=== PATIENT | female | born 1955 | race Caucasian/White ===

== ENCOUNTER 2020-09-23 23:27 | Emergency (ER) | payer MEDICARE ==
[~2020-09-23] VITALS: Ht 167.6 cm; Wt 65.8 kg
--- NOTE | 2020-09-23 23:51 | NUR ---
BIBRA FOR C/O R HIP PAIN X 2 DAYS.DENIED ANY FALL OR TRAUMA. REPORTED HAD L AXILARY LYMPH NODE REMOVAL AT [facility] ON 09/15 AND THE DRAINAGE TUBE WAS REMOVED EARLIER TODAY. ALSO NOTED W/ L ARM FISTULA. PT ENDORSED KIDNEY FAILURE BUT NOT STARTED ON HD YET. PT WAS PLACED IN BED 8 ER. VSS . WILL CONT TO MONITOR WHILE AWAITING FOR MD'S EVAL
--- NOTE | 2020-09-24 01:51 | NUR ---
PT IS MEDICALLY STABLE FOR D/C. Patient discharged to home in stable condition. Written and verbal after care instructions given. Patient verbalizes understanding of instruction. pt was assisted to the car via wc
[2020-09-24 01:52] VITALS: BP 148/84
== END 2020-09-24 01:52 | disposition home or self-care (01) ==
LOC: ER 23:33
DX: M54.31 Sciatica, right side (principal); M79.604 Pain in right leg; M25.551 Pain in right hip; I10 Essential (primary) hypertension; Z98.890 Other specified postprocedural states
CPT/HCPCS: 72131-TC; 93971-TC

== ENCOUNTER 2021-09-04 22:31 | Emergency (ER) | payer MEDICARE, BC ==
[~2021-09-04] VITALS: Ht 167.6 cm; Wt 63.5 kg
--- NOTE | 2021-09-04 23:05 | NUR ---
[id number]. DIZZINESS, NAUSEA ND VOMMITING X 2 HRS. PATIENT HAS LEFT AV FISTULA +BRUIT AND THRILLS. WITH S/P RIGHT BREAST MASTECTOMY. PATIENT IS ALERT, ORIENTED X4. VITALS CHECKED.
--- NOTE | 2021-09-04 23:06 | NUR ---
CORRAL DAUGHTER . INFORMED THAT PT HALL MANAGER IS AT [facility] DR GABI SIMONS.
[2021-09-04] MEDS ORDERED: ONDANSETRON HCL/PF 4 MG/2 ML VIAL ONE (23:25)
[2021-09-04] MEDS ORDERED: ONDANSETRON HCL/PF - ER 4 MG/2 ML VIAL IV ONE (23:30)
[2021-09-04] MEDS ORDERED: IV NS 0.9% 500 ML IV ONE (23:30)
--- NOTE | 2021-09-04 23:30 | NUR ---
IV CANNULA G20 INSERTED ON RIGHT HAND. BLOOD DRAWN AND SENT TO LAB
[2021-09-04 23:42] LABS: BASOPHILS # (AUTO) 0.1 K/uL (0.0-0.2); BASOPHILS % (AUTO) 0.9 % (0.0-2.0); EOSINOPHILS % (AUTO) 0.3 % (0.0-6.0); HEMATOCRIT 31 % (33-45); HEMOGLOBIN 10.2 g/dL (11.5-14.8); LYMPHOCYTES # (AUTO) 0.8 K/uL (0.8-4.8); LYMPHOCYTES % (AUTO) 7.1 % (20.0-44.0); MEAN CORPUSCULAR HGB CONC 33 g/dl (31.0-36.0); MEAN CORPUSCULAR VOLUME 88 fL (82-100); MONOCYTES # (AUTO) 0.6 K/uL (0.1-1.30); MONOCYTES % (AUTO) 5.5 % (2.0-12.0); NEUTROPHILS % (AUTO) 86.2 % (43.0-81.0); PLATELET COUNT (AUTO) 323 K/uL (150-450); RED BLOOD CELL COUNT(AUTO) 3.56 MIL/uL (4.0-5.2); WHITE BLOOD COUNT (AUTO) 11.6 K/uL (4.3-11.0)
[2021-09-05 00:06] LABS: ALBUMIN 3.8 g/dL (3.4-5.0); BILIRUBIN,TOTAL 0.3 mg/dL (0.2-1.0); CALCIUM, SERUM 9.5 mg/dL (8.5-10.1); CREATININE 7.1 mg/dL (0.6-1.3); POTASSIUM 3.4 mmol/L (3.5-5.1); TOTAL PROTEIN, SERUM 7.9 g/dL (6.4-8.2)
[2021-09-05] MEDS ORDERED: ONDA4TAB11 PO (00:54)
[2021-09-05 01:47] VITALS: BP 169/71
== END 2021-09-05 01:48 | disposition home or self-care (01) ==
LOC: ER 22:38
DX: R11.2 Nausea with vomiting, unspecified (principal); I12.9 Hypertensive chronic kidney disease with stage 1 through stage 4 chronic kidney disease, or unspecified chronic kidney disease; N18.9 Chronic kidney disease, unspecified; Z98.890 Other specified postprocedural states
CPT/HCPCS: 99283; 85025; 83690; 36415; 80053; 96374; J2405 ×2; J7040

== ENCOUNTER 2022-02-09 10:25 | Emergency (ER) | payer MEDICARE, BC ==
[~2022-02-09] VITALS: Ht 167.6 cm; Wt 61.2 kg
[~2022-02-09 10:25] MED LIST: ONDA4TAB11 PO
--- NOTE | 2022-02-09 11:04 | NUR ---
PT C/O LEFT WRIST PAIN/SWELLING,S/P GLF YESTERDAY MORNING. PT PLACED IN BED AND MONITOR. AAOX4. VSS.
--- NOTE | 2022-02-09 11:37 | NUR ---
X-RAY AT BEDSIDE
--- NOTE | 2022-02-09 11:45 | NUR ---
tech at bedside for splinting.
[2022-02-09] MEDS ORDERED: OXYC-128 PO (12:39)
--- NOTE | 2022-02-09 13:25 | NUR ---
Patient discharged to home in stable condition. Written and verbal after care instructions given. Patient verbalizes understanding of instruction.
[2022-02-09 13:28] VITALS: BP 164/82
== END 2022-02-09 13:29 | disposition home or self-care (01) ==
LOC: ER 10:39
DX: S52.502A Unspecified fracture of the lower end of left radius, initial encounter for closed fracture (principal); I10 Essential (primary) hypertension; Z85.3 Personal history of malignant neoplasm of breast; Z90.11 Acquired absence of right breast and nipple; W01.0XXA Fall on same level from slipping, tripping and stumbling without subsequent striking against object, initial encounter; Y93.89 Activity, other specified; Y92.89 Other specified places as the place of occurrence of the external cause; Y99.8 Other external cause status
CPT/HCPCS: 73110

== ENCOUNTER 2023-05-31 11:20 | Emergency (ER) | payer MEDICARE, BC ==
[~2023-05-31] VITALS: Ht 167.6 cm; Wt 59.0 kg
[~2023-05-31 11:20] MED LIST changes: +OXYC-128 PO
[2023-05-31] MEDS ORDERED: IBUP-1955 PO (14:01)
[2023-05-31 14:09] VITALS: BP 145/77; TEMP 98.2; O2SAT 99
== END 2023-05-31 14:09 | disposition home or self-care (01) ==
LOC: ER 11:25
DX: L72.3 Sebaceous cyst (principal); I12.9 Hypertensive chronic kidney disease with stage 1 through stage 4 chronic kidney disease, or unspecified chronic kidney disease; N18.9 Chronic kidney disease, unspecified; Z85.3 Personal history of malignant neoplasm of breast
CPT/HCPCS: 93971-TC